=== PATIENT | male | born 1970 | race Caucasian/White ===

== ENCOUNTER 2016-06-23 19:27 | Emergency (ER) | payer MEDICAID ==
[~2016-06-23] VITALS: Ht 185.4 cm; Wt 105.0 kg
[~2016-06-23 19:27] MED LIST: LISI-515 PO
[2016-06-23 19:32] VITALS: BP 131/87; PULSE 79; RESP 18; TEMP 98.9; O2SAT 97
[2016-06-23] MEDS ORDERED: PENI500T PO (20:13)
--- NOTE | 2016-06-23 20:14 | PD ---
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 States he has bad teeth and has been told by his fixing carpenter when he gets signs of infection to get on antibiotics. The last 2- 3 days he's had some swelling on the palate and a small pustule on the outside of the gingiva around tooth #5. No drainage or bleeding. Denies any sore throat or difficulty swallowing or breathing. No fever, chills, nausea, vomiting. No chest pain, shortness of breath or dizziness. PFSH Past Medical History Arthritis: No Asthma: No Autoimmune Disease: No Blood Disorders: No Heart Rhythm Problems: No Cancer: No Cardiovascular Problems: Yes (ENDOCARDITIS) High Cholesterol: No Chemotherapy: No Chest Pain: No Congestive Heart Failure: No COPD: No Cerebrovascular Accident: Yes (LT HEMIPARESIS) Diminished Hearing: No Endocrine: No Gastrointestinal Disorders: No GERD: No Genitourinary: No Hiatal Hernia: No Hypertension: Yes Kidney Stones: No Musculoskeletal: No Neurologic: No Psychiatric: No Reproductive: No Respiratory: No Migraines: No Myocardial Infarction: No Radiation Therapy: No Renal Failure: No Seizures: No Sleep Apnea: No Thyroid Disease: Yes (HYPO) Ulcer: No Tetanus Vaccination: < 5 Years Influenza Vaccination: No Past Surgical History Abdominal Surgery: Yes (BILIARY DRAIN) AICD: No Cardiac Surgery: Yes (AORTIC VALVE REPLACEMENT; MITRAL VALVE REPAIR) Ear Surgery: Yes Endocrine Surgery: Yes Eye Surgery: Yes Gynecologic Surgery: Yes Oral Surgery: Yes Pacemaker: No Thoracic Surgery: Yes Other Surgery: No Social History Alcohol Use: No (quit 2008) Tobacco Use: No (quit 20 yrs ago) Substance Use: No Allergies-Medications (Allergen,Severity, Reaction): Coded Allergies: No Known Allergies (Unverified , 03/16/16) Reported Meds & Prescriptions Reported Meds & Active Scripts Active Penicillin V Potassium 500 Mg Tab 500 Mg PO Q6H 10 Days Lisinopril 20 Mg Tab 20 Mg PO DAILY Review of Systems Except as stated in HPI: all other systems reviewed are Neg Physical Exam Narrative GENERAL: Well-developed and well-nourished adult male in no acute distress. SKIN: Warm and dry. Good turgor without tenting. HEAD: Normocephalic and atraumatic. EYES: PERRL bilaterally, 5mm. EOMI bilaterally. No injection or icterus present. No proptosis. Lids without edema or erythema. ENT: On hard palate adjacent to tooth #5 there is a sub-centimeter area of fluctuance and on the opposite side of the gingiva there is a small pustule. Minor erythema and tenderness to palpation. No bleeding or drainage. Buccal mucosa pink and moist. No buccal or sublingual masses. Oropharynx free of erythema, tonsillar hypertrophy, masses, swelling, asymmetry and exudates. Uvula midline and airway patent. NECK: Supple, no meningeal signs. Trachea midline, no JVD. No cervical or facial lymphadenopathy. CARDIOVASCULAR: Accentuated S2 early systolic ejection murmur heard best at the bilateral upper sternal borders, 2/6. Regular rate and rhythm without rubs, clicks or gallops. RESPIRATORY: Clear to auscultation bilaterally with symmetrical rise and fall, no distress or use of accessory muscles. MUSCULOSKELETAL: No gait disturbances. Patient freely moving all four extremities spontaneously. Extremities without clubbing, cyanosis, or edema. No obvious deformities. NEUROLOGIC: CN II-XII grossly intact. Awake and alert. Motor grossly within normal limits. Normal speech. PSYCHIATRIC: Appropriate mood and affect; insight and judgment normal. Data Data Last Documented VS Vital Signs Date Time Temp Pulse Resp B/P Pulse Ox O2 Delivery O2 Flow Rate FiO2 06/23/16 19:45 18 16 06/23/16 19:42 06/23/16 19:32 98.9 97 MDM Medical Decision Making Medical Screen Exam Complete: Yes Emergency Medical Condition: Yes Differential Diagnosis Periapical abscess versus gingivitis versus dental cellulitis Narrative Course Patient is a 45-year-old male with history and physical suggestive of early periapical abscess. He is afebrile and nontoxic-appearing. I did de-roof the pustule on the digital side small amount of purulent drainage. See procedure note. Patient was given Pen-Vee K and recommend frequent salt water gargles.See discharge paperwork for further instructions. The plan was discussed with the patient who acknowledged their understanding and agreement. Reinforced the follow-up with primary care is critically important. Patient instructed on emergent conditions that should prompt return to ED. Procedures Procedure Narrative I&D LOCATION: Right upper gingiva SIZE: Subcentimeter ANESTHESIA: Hurricane spray PROCEDURE: Let Hurricaine spray for 3 seconds continuously. Using an 18-gauge needle deroofed pustule on the gingival side around tooth #5. Small amount of bleeding and purulent drainage with palpation of the fluctuance on the palate. Expressed purulent and bloody material, approximately 0.5 mL. The wound was copiously irrigated. The wound was left open. Packing was not done. Patient tolerated the procedure well. Diagnosis Primary Impression: Periapical abscess Patient Instructions: Dental Abscess (ED), General Instructions Additional Instructions: Take medication as directed Use salt water gargles, Orajel, or other OTC products for topical pain relief Apply ice packs hourly as needed to help with swelling and pain Schedule with dentist [facility] for definitive treatment Return to the ED for any acute worsening of symptoms or if you develop any fever , chest pain, shortness of breath or dizziness Med/Other Pt SpecificInfo: Prescription(s) given Scripts Penicillin V Potassium 500 Mg [id number] Mg PO Q6H 10 Days Prov:Shine Escobar MD 06/23/16 Disposition: 01 DISCHARGE HOME Condition: Stable Maxim Oneill III Jun 23, 2016 20:14
== END 2016-06-23 20:34 | disposition home or self-care (01) ==
LOC: PHEFT 19:27
DX: K04.7 Periapical abscess without sinus (principal)
CPT/HCPCS: 41800

== ENCOUNTER 2016-09-20 10:24 | Emergency (ER) | payer MEDICAID ==
[~2016-09-20] VITALS: Ht 185.4 cm; Wt 102.0 kg
[2016-09-20 10:29] VITALS: BP 115/72; PULSE 69; RESP 16; TEMP 98.4; O2SAT 96
--- NOTE | 2016-09-20 11:01 | PD ---
HPI Chief Complaint: Complaint Time Seen by Provider: 10:32 Travel History International Travel<30 days: No Contact w/Intl Traveler<30days: No Traveled to known affect area: No History of Present Illness HPI Patient's 45 years old. He arrives with a complaint of urinary retention. The patient underwent dental surgery with all of his top teeth extracted 3 days prior. Since then he has struggled to urinate. At times she takes 20 minutes to evacuate a very small volume of urine. He denies a painful bladder or dysuria. He's had no fever or vomiting. The patient has been using oxycodone for pain management. He reduced his dosage yesterday thinking might have allowed him better urination. This morning he felt some pain and did take 1 oxycodone tablet. In the ER he does deny abdominal pain and flank pain. He notes that he prefers not to undergo Mg catheterization. He also notes that he prefers not to allow straight catheter specimen. Finally he attests that he will not provide a urine sample even if allowed unlimited time. He states a personal friend suggested using Flomax. He has struggled with a short temper since then is reported by the mother. He nonetheless demonstrates capacity for independent decision making. After our initial interview the patient left the ER. He has suffered kidney failure in the past in association with hospitalization following a stroke. We were able to review with the patient that urinary obstruction can lead to kidney failure. We talked about disability and pain involved with dialysis on prior to his departure. The patient will fully ambulated about the ER door before paperwork could be signed. Then after I spoke with the mother for a few minutes about signs and symptoms to look out for including any change in mental status, complaints of palpitations or any cardiac complaint, increasing pain, and fever. She understands additionally that continued urinary retention may lead to renal failure. Finally she does have follow-up with the family medicine residents. She took a sterile urinalysis And reported she would follow up with Dr. Mcgarry most expeditiously. [facility] Past Medical History Arthritis: No Asthma: No Autoimmune Disease: No Blood Disorders: No Heart Rhythm Problems: No Cancer: No Cardiovascular Problems: Yes (ENDOCARDITIS) High Cholesterol: No Chemotherapy: No Chest Pain: No Congestive Heart Failure: No COPD: No Cerebrovascular Accident: Yes (LT HEMIPARESIS) Diminished Hearing: No Endocrine: No Gastrointestinal Disorders: No GERD: No Genitourinary: No Hiatal Hernia: No Hypertension: Yes Kidney Stones: No Musculoskeletal: No Neurologic: No Psychiatric: No Reproductive: No Respiratory: No Migraines: No Myocardial Infarction: No Radiation Therapy: No Renal Failure: No Seizures: No Sleep Apnea: No Thyroid Disease: Yes (HYPO) Ulcer: No Past Surgical History Abdominal Surgery: Yes (BILIARY DRAIN) AICD: No Cardiac Surgery: Yes (AORTIC VALVE REPLACEMENT; MITRAL VALVE REPAIR) Ear Surgery: Yes Endocrine Surgery: Yes Eye Surgery: Yes Gynecologic Surgery: Yes Oral Surgery: Yes Pacemaker: No Thoracic Surgery: Yes Other Surgery: No Social History Alcohol Use: No (quit 2008) Tobacco Use: No (quit 20 yrs ago) Substance Use: No Allergies-Medications (Allergen,Severity, Reaction): Coded Allergies: No Known Allergies (Unverified , 09/20/16) Reported Meds & Prescriptions Reported Meds & Active Scripts Active Lisinopril 20 Mg Tab 20 Mg PO DAILY Review of Systems Except as stated in HPI: all other systems reviewed are Neg General / Constitutional: No: Fever Gastrointestinal: No: Nausea, Vomiting Genitourinary: Positive: Hesitancy, Other (hesitency ) Physical Exam Narrative GENERAL: 45 yo M, WNWD, no acute distress SKIN: Warm and dry. HEAD: Atraumatic. Normocephalic. EYES: Pupils equal and round. No scleral icterus. No injection or drainage. ENT: No nasal bleeding or discharge. Mucous membranes pink and moist. NECK: Trachea midline. No JVD. CARDIOVASCULAR: Regular rate and rhythm. RESPIRATORY: No accessory muscle use. Clear to auscultation. Breath sounds equal bilaterally. GASTROINTESTINAL: Mildly prominent suprapubic abdomen. Minimal tenderness about suprapubic abdomen. Soft. MUSCULOSKELETAL: Extremities without clubbing, cyanosis, or edema. No obvious deformities. NEUROLOGICAL: Awake and alert. No obvious cranial nerve deficits. Motor grossly within normal limits. Stable gait. Memory, mentation normal. Normal speech. PSYCHIATRIC: Slightly agitated. Competent for independent decision making. Data Data Last Documented VS Vital Signs Date Time Temp Pulse Resp B/P Pulse Ox O2 Delivery O2 Flow Rate FiO2 09/20/16 10:58 16 09/20/16 10:29 98.4 69 115/72 96 VS reviewed MDM Medical Decision Making Medical Screen Exam Complete: Yes Emergency Medical Condition: Yes Medical Record Reviewed: Yes Differential Diagnosis Prostatitis, oxycodone side effect, BPH, injury from catheterization from surgery, UTI, renal failure Narrative Course Please refer to HPI. Unfortunately pt elected to leave against medical advice towards the end of the initial interview and exam. Diagnosis Primary Impression: Left against medical advice Referrals: Primary Care Physician Additional Instructions: You have a choice when it comes to health care, and we are glad that you chose [facility]. Hopefully, we have met your expectations on today's visit. You are welcome to return to [facility] at any time, as we are committed to meeting the health care needs of our community. Disposition: AGAINST MEDICAL ADVICE Condition: Serious Shawn Hutchins MD Sep 20, 2016 11:01
[2016-09-20] MEDS ORDERED: AMOX500C PO (11:25)
[2016-09-20] MEDS ORDERED: OXYC1CAP PO (11:25)
[2016-09-20] MEDS ORDERED: PENI250T59 PO (11:25)
[2016-09-20] MEDS ORDERED: TAMS5CAP PO (16:20)
== END 2016-09-20 11:28 | disposition left against medical advice (07) ==
LOC: PHED 10:24
DX: R33.9 Retention of urine, unspecified (principal); I10 Essential (primary) hypertension; E07.9 Disorder of thyroid, unspecified; Z98.890 Other specified postprocedural states; Z86.79 Personal history of other diseases of the circulatory system; Z87.891 Personal history of nicotine dependence; Z53.29 Procedure and treatment not carried out because of patient's decision for other reasons
CPT/HCPCS: 99282